=== PATIENT | male | born 1960 | race Caucasian/White ===

== ENCOUNTER 2018-09-04 09:14 | Emergency (ER) | payer BC ==
[2018-09-04 10:14] VITALS: BP 132/85
--- NOTE | 2018-09-04 10:22 | UC ---
Skin Complaint HPI - HPI Summary HPI Summary: 57 y/o male presents to the urgent care c/o a rash in his inner RT thigh his noticed this morning. Pt reports hx of multiple tick bite for the past 3 months. 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 Rash is red w / a central clearance and he is now concerned w/ Lyme. [facility] has also been in [facility] [place]. He removed last tick from his back about 2 days ago and it was engorged. He denies fever and GUEVARA. However, he states myalgias and joint pain, but he sometimes had them. Pt SOB, chest pain, abdominal pain, dizziness, N/V/D. - History of Current Complaint Chief Complaint: UCSkin Time Seen by Provider: 09/04/18 10:17 Stated Complaint: RIGHT LEG SKIN CONCERN Hx Obtained From: Patient Onset/Duration: Sudden Onset, Lasting Hours - 12 hrs Skin Exposure Onset/Duration: Hours Ago - 12 hrs Onset Severity: Mild Current Severity: Mild Pain Intensity: 2 - at touch Pain Scale Used: 0-10 Numeric Location: Discrete - Right inner thigh red rash w/ a central clearance Character: Redness Aggravating Factor(s): Touch Alleviating Factor(s): Nothing Associated Signs & Symptoms: Positive: Rash - roun drash in the inner Rt thigh w / a central clearance, Tenderness - mild at touch. Negative: Vomiting, Numbness , Fever Related History: Possible Reaction to: Insect - multiple tick bites in different parts of his body for the past 3 months - Allergy/Home Medications Allergies/Adverse Reactions: Allergies Allergy/AdvReac Type Severity Reaction Status Date / Time No Known Allergies Allergy Verified 09/04/18 10:08 Home Medications: Home Medications Allopurinol TAB* [Zyloprim 100 MG TAB*] 100 mg PO DAILY 09/04/18 [History Confirmed 09/04/18] Aspirin EC TAB* [Ecotrin EC TAB*] 325 mg PO DAILY 09/04/18 [History Confirmed ] Ezetimibe TAB* [Zetia TAB*] 10 mg PO DAILY 09/04/18 [History Confirmed 09/04/18] Rosuvastatin Calcium 40 mg PO DAILY 09/04/18 [History Confirmed 09/04/18] Tadalafil (Nf) [Cialis (NF)] 5 mg PO SEE INSTRUCTIONS PRN 09/04/18 [History Confirmed 09/04/18] amLODIPine TAB* [Norvasc 5 mg TAB*] 5 mg PO DAILY 09/04/18 [History Confirmed ] PMH/Surg Hx/FS Hx/Imm Hx Previously Healthy: Yes Endocrine History: Dyslipidemia Other Endocrine History: Gout Cardiovascular History: Cardiac Disease, Hypertension - Surgical History Surgical History: Yes Surgery Procedure, Year, and Place: Angioplasty, 2012, [place]; Left Inguinal Herniorrhapy, ~1985, [place] - Family History Known Family History: Positive: Cardiac Disease, Hypertension - Social History Occupation: Employed Full-time Alcohol Use: Occasionally Substance Use Type: None Smoking Status (MU): Never Smoked Tobacco Review of Systems All Other Systems Reviewed And Are Negative: Yes Constitutional: Positive: Negative Skin: Positive: Rash - RT inner thight w/ a raoudn rash and central clearance Eyes: Positive: Negative ENT: Positive: Negative Respiratory: Positive: Negative Cardiovascular: Positive: Negative Gastrointestinal: Positive: Negative Genitourinary: Positive: Negative Motor: Positive: Negative Neurovascular: Positive: Negative Musculoskeletal: Positive: Arthralgia, Myalgia Neurological: Positive: Negative Psychological: Positive: Negative Is Patient Immunocompromised?: No Physical Exam - Summary Physical Exam Summary: Vital Signs Reviewed: Yes General: well developed, well nourished male sitting in the examining table w/o any apparent distress. Eyes: Positive: Conjunctiva Clear - PERRLA, EOMI ENT: Positive: Normal ENT inspection, Hearing grossly normal, Pharynx normal, TMs normal Neck: Positive: Supple, Nontender, No Lymphadenopathy Respiratory: Positive: Chest nontender, Lungs clear, Normal breath sounds Cardiovascular: Positive: RRR, No Murmur, Pulses Normal Abdomen Description: Positive: Nontender, No Organomegaly, Soft. Negative: CVA Tenderness (R), CVA Tenderness (L) Bowel Sounds: Positive: Present Musculoskeletal: Positive: Strength Intact, ROM Intact, No Edema Neurological Exam: Normal Psychological Exam: Normal Skin: Positive: medial aspect or the Rt thigh w/ an erythematous patch w/ a central clearance, possible a bull's eye lesions, about 5cmx 4.0cm in size, mild tender to palpation. no swelling or drainage observed. Triage Information Reviewed: Yes Vital Signs: Initial Vital Signs Temp 98.1 F 09/04/18 10:05 Pulse 78 09/04/18 10:05 Resp 16 09/04/18 10:05 BP 132/85 09/04/18 10:05 Pulse Ox 98 09/04/18 10:05 Course/Dx - Course Course Of Treatment: 57 y/o male presents to the urgent care c/o a rash in his inner RT thigh his noticed this morning. Pt reports hx of multiple tick bite for the past 3 months. 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 Rash is red w / a central clearance and he is now concerned w/ Lyme. [facility] [place] He removed last tick from his back about 2 days ago and it was engorged. He denies fever and GUEVARA. However, he states myalgias and joint pain, but he sometimes had them. Pt SOB, chest pain, abdominal pain, dizziness, N/V/D. Hx obtained. PT w/ medial aspect or the Rt thigh w/ an erythematous patch w/ a central clearance, possible a bull's eye lesions, about 5cmx 4.0cm in size on examination. Pt w/ multiple tick bites in the past 3 months here in the area and around [place], I discussed w/ patient the rash looks questionable, but since he has been exposed so many times w/ tick bite he should get Doxycycline treatment . Lyme serology ordered. Pt will be notified of results. Pt Rx Doxycycline PO as directed below. Advised that there is to possibility the serology returns negative the first 2 weeks of exposure. However strongly advised to f/u with Dr Orosco or PCP for further management if it returns positive. Pt understood and agreed with plan of care. - Differential Diagnoses - Skin Complaint Differential Diagnoses: Abscess, Cellulitis, Contact Dermatitis, Tick Born Illness, Urticaria - Diagnoses Provider Diagnosis: Acute Lyme disease with erythema migrans lesion 5 cm or greater in diameter Discharge - Sign-Out/Discharge Documenting (check all that apply): Patient Departure - D/C home All imaging exams completed and their final reports reviewed: No Studies - Discharge Plan Condition: Stable Disposition: HOME Prescriptions: DOXYcycline CAP(*) [DOXYcycline 100MG CAP(*)] 100 mg PO BID #28 cap Patient Education Materials: Lyme Disease (ED) Referrals: Ochoa Courtney [Primary Care Provider] - 1 Week Ana Luisa YUNG,Nicho Marc [Medical Doctor] - 1 Week Additional Instructions: 1- Since you have been exposed to multiple tick bite and you may have a possible erythema Migrans rash , Please take full course of antibiotic to avoid resistance. 2- Lyme Serology and blood work still pending. You will be notified of results. 3- F/u with DR Orosco who specializes on Lyme disease in the area or a PCP in 1 week for further evaluation and treatment. - Billing Disposition and Condition Condition: STABLE Disposition: Home
== END 2018-09-04 11:19 | disposition home or self-care (01) ==
LOC: UCCORT 09:14
DX: A69.20 Lyme disease, unspecified (principal); A26.0 Cutaneous erysipeloid; I10 Essential (primary) hypertension; M10.9 Gout, unspecified; E78.5 Hyperlipidemia, unspecified
CPT/HCPCS: 36415; 86618; 99212; G0463